=== PATIENT | female | born 1940 | race Caucasian/White ===

== ENCOUNTER 2017-12-06 23:47 | Emergency (ER) | payer OTHER ==
[2017-12-07 00:51] LABS: Absolute Lymphocytes (CBC) 2.4 K/uL (0.7-4.9); Absolute Monocytes 0.7 K/uL (0.1-1.3); Absolute Neutrophil 5.4 K/uL (1.8-8.0); Basophils % 0.5 % (0-1.3); Eosinophils % 3.9 % (0-4.4); Hematocrit 39.7 % (36.0-45.0); Lymphocytes % 27.1 % (15.3-44.8); MCH 30.9 pg (27.0-35.0); MCV 89.2 fL (80-100); MPV 8.2 fL (7.6-11.3); Monocytes % 7.8 % (3.3-12.3); RBC Red Blood Cell Count 4.45 M/uL (3.86-4.86)
[2017-12-07] MEDS ORDERED: MECLIZINE HCL 12.5 MG TAB ONE (00:58)
[2017-12-07 01:03] LABS: Protime INR 0.96
[2017-12-07 01:15] LABS: ALT/SGPT 34 U/L (12-78); AST/SGOT 23 U/L (15-37); Albumin 3.8 g/dL (3.4-5.0); Alkaline Phosphatase 71 U/L (45-117); BUN Blood Urea Nitrogen 21 mg/dL (7-18); Bicarbonate 27 mmol/L (21-32); Bilirubin Direct 0.1 mg/dL (0-0.2); Bilirubin Total 0.3 mg/dL (0.2-1.0); CKMB Creatine Kinase MB < 1.0 ng/mL (0.3-3.6); Creatine Phosphokinase 42 U/L (26-192); Glucose Level 114 mg/dL (74-106); NT PRO-BNP 141 pg/mL (<450); Potassium 3.8 mmol/L (3.5-5.1); Protein, Total 7.1 g/dL (6.4-8.2); Sodium Level 140 mmol/L (136-145); Troponin (Emerg Dept Use Only) < 0.02 ng/mL (0.0-0.045)
--- NOTE | 2017-12-07 02:07 | EDPHYS ---
Physician Documentation [facility] Name: Maria Del Carmen Mckeon Age: 77 yrs Sex: Female : 1940 Arrival Date: 12/06/2017 Time: 23:49 Bed 17 Private MD: Troy Santos F ED Physician Segundo Cole HPI: 12/07 01:00 This 77 yrs old Female presents to ER via EMS with complaints of Dizziness. pm1 01:00 The patient presents with sense of spinning, vertigo. Onset: The symptoms/episode pm1 began/occurred 2 day(s) ago. Context: occurred at home, occurred while the patient was changing position. just prior to the episode the patient experienced no apparent symptoms. Modifying factors: The symptoms are alleviated by holding head still, the symptoms are aggravated by movement of head, changing position. Associated signs and symptoms: Pertinent positives: nausea, Pertinent negatives: abdominal pain, chest pain, confusion, headache, numbness, shortness of breath, vomiting. Severity of symptoms: in the emergency department the symptoms have improved. Patient's baseline: Neuro: alert and fully oriented, Motor: no deficits, Ambulation: walks without assistance, Speech: normal. The patient has not experienced similar symptoms in the past, but family has similar symptoms, spouse. The patient has not recently seen a physician. Historical: - Allergies: 12/06 23:55 No Known Allergies; tl2 - Home Meds: 23:55 losartan-hydrochlorothiazide 50-12.5 mg oral tab 1 tab once daily [Active]; tl2 atorvastatin oral oral [Active]; - PMHx: 23:55 Hypertension; Hyperlipidemia; Glaucoma; tl2 - Immunization history:: Adult Immunizations up to date. - Social history:: Smoking status: Patient/guardian denies using tobacco. - Ebola Screening: : No symptoms or risks identified at this time. ROS: 12/07 01:00 Constitutional: Negative for fever, chills, and weight loss, Eyes: Negative for injury, pm1 pain, redness, and discharge, ENT: Negative for injury, pain, and discharge, Neck: Negative for injury, pain, and swelling, Cardiovascular: Negative for chest pain, palpitations, and edema, Respiratory: Negative for shortness of breath, cough, wheezing, and pleuritic chest pain, Abdomen/GI: Negative for abdominal pain, nausea, vomiting, diarrhea, and constipation, Back: Negative for injury and pain, : Negative for injury, bleeding, discharge, and swelling, MS/Extremity: Negative for injury and deformity, Skin: Negative for injury, rash, and discoloration. Neuro: Positive for dizziness, Negative for numbness, tingling, weakness. Exam: 01:00 Constitutional: This is a well developed, well nourished patient who is awake, alert, pm1 and in no acute distress. Head/Face: Normocephalic, atraumatic. Eyes: Pupils equal round and reactive to light, extra-ocular motions intact. Lids and lashes normal. Conjunctiva and sclera are non-icteric and not injected. Cornea within normal limits. Periorbital areas with no swelling, redness, or edema. ENT: Nares patent. No nasal discharge, no septal abnormalities noted. Tympanic membranes are normal and external auditory canals are clear. Oropharynx with no redness, swelling, or masses, exudates, or evidence of obstruction, uvula midline. Mucous membranes moist. Neck: Trachea midline, no thyromegaly or masses palpated, and no cervical lymphadenopathy. Supple, full range of motion without nuchal rigidity, or vertebral point tenderness. No Meningismus. Chest/axilla: Normal chest wall appearance and motion. Nontender with no deformity. No lesions are appreciated. Cardiovascular: Regular rate and rhythm with a normal S1 and S2. No gallops, murmurs, or rubs. Normal PMI, no JVD. No pulse deficits. Respiratory: Lungs have equal breath sounds bilaterally, clear to auscultation and percussion. No rales, rhonchi or wheezes noted. No increased work of breathing, no retractions or nasal flaring. Abdomen/GI: Soft, non-tender, with normal bowel sounds. No distension or tympany. No guarding or rebound. No evidence of tenderness throughout. Back: No spinal tenderness. No costovertebral tenderness. Full range of motion. Skin: Warm, dry with normal turgor. Normal color with no rashes, no lesions, and no evidence of cellulitis. MS/ Extremity: Pulses equal, no cyanosis. Neurovascular intact. Full, normal range of motion. 01:00 Neuro: Orientation: is normal, Mentation: is normal, Cranial nerves: CN II- XII are normal as tested, Cerebellar function: normal finger to nose testing, Motor: is normal, moves all fours, Sensation: is normal, no obvious gross deficits. Vital Signs: 12/06 23:55 BP 162 / 91; Pulse 77; Resp 18; Temp 98.6(O); Pulse Ox 99% on R/A; Weight 79.38 kg; tl2 Height 5 ft. 4 in. (162.56 cm); Pain 0/10; 12/07 01:21 BP 151 / 83; Pulse 72; Resp 19; Pulse Ox 96% on R/A; tl2 02:27 BP 135 / 70; Pulse 69; Resp 16; Temp 98.7; Pulse Ox 98% on R/A; Pain 0/10; tl1 12/06 23:55 Body Mass Index 30.04 (79.38 kg, 162.56 cm) tl2 MDM: 00:22 Patient medically screened. pm1 02:00 ED course: improvement in symptoms with Antivert. Patient feels better and ready to go pm1 home.. 02:04 Data reviewed: vital signs. Data interpreted: Pulse oximetry: on room air is 96 %. pm1 Interpretation: normal. Counseling: I had a detailed discussion with the patient and/or guardian regarding: the historical points, exam findings, and any diagnostic results supporting the discharge/admit diagnosis, lab results, radiology results, the need for outpatient follow up, to return to the emergency department if symptoms worsen or persist or if there are any questions or concerns that arise at home. 12/07 00:33 Order name: Basic Metabolic Panel pm1 12/07 00:33 Order name: CBC with Diff; Complete Time: 01:36 pm12/07 00:33 Order name: Ckmb; Complete Time: :36 pm12/07 00:33 Order name: CPK; Complete Time: :36 pm12/07 00:33 Order name: LFT's; Complete Time: :36 pm12/07 00:33 Order name: Magnesium; Complete Time: :36 pm12/07 00:33 Order name: CT Head Brain wo Cont pm1 12/07 00:33 Order name: NT PRO-BNP; Complete Time: 01:36 pm12/07 00:33 Order name: PT-INR; Complete Time: :36 pm1 12/07 00:33 Order name: Ptt, Activated; Complete Time: 01:36 pm1 12/07 00:33 Order name: Troponin (emerg Dept Use Only); Complete Time: 01:36 pm1 12/07 00:33 Order name: XRAY Chest (1 view) pm1 12/07 00:34 Order name: Basic Metabolic Panel; Complete Time: 01:36 EDMS 12/07 00:33 Order name: EKG; Complete Time: 00:34 pm1 12/07 00:33 Order name: Cardiac monitoring; Complete Time: 00:43 pm1 12/07 00:33 Order name: EKG - Nurse/Tech; Complete Time: 00:43 pm1 12/07 00:33 Order name: IV Saline Lock; Complete Time: 00:43 pm1 12/07 00:33 Order name: Labs collected and sent; Complete Time: 00:43 pm1 12/07 00:33 Order name: O2 Per Protocol; Complete Time: 00:43 pm1 12/07 00:33 Order name: O2 Sat Monitoring; Complete Time: 00:43 pm1 Administered Medications: 01:24 Drug: Meclizine 25 mg Route: PO; tl2 02:28 Follow up: Response: No adverse reaction; Marked relief of symptoms tl1 Disposition: 12/07/17 02:06 Discharged to Home. Impression: Benign paroxysmal vertigo. - Condition is Stable. - Discharge Instructions: Benign Positional Vertigo. - Prescriptions for Meclizine 25 mg Oral Tablet - take 1 tablet by ORAL route every 8 hours As needed; 30 tablet. - Medication Reconciliation Form, Thank You Letter form. - Follow up: Emergency Department; When: As needed; Reason: Worsening of condition. Follow up: Troy Santos MD; When: 2 - 3 days; Reason: Recheck today's complaints, Continuance of care, Re-evaluation by your physician. - Problem is new. - Symptoms have improved. Addendum: 12/08/2017 03:05 Co-signature as Attending Physician, Segundo Cole MD. g s Signatures: Dispatcher [employer] EDMS Huma Rodriguez RN RN tl1 Wilfredo Ram, WIRE STRAIGHTENER WIRE STRAIGHTENER pm1 Mariama Patten RN RN tl2 Segundo Cole MD MD Corrections: (The following items were deleted from the chart) 12/07 02:36 02:06 12/07/2017 02:06 Discharged to Home. Impression: Benign paroxysmal vertigo. tl1 Condition is Stable. Forms are Medication Reconciliation Form, Thank You Letter, Antibiotic Education, Prescription Opioid Use. Follow up: Emergency Department; When: As needed; Reason: Worsening of condition. Follow up: Troy Santos; When: 2 - 3 days; Reason: Recheck today's complaints, Continuance of care, Re-evaluation by your physician. Problem is new. Symptoms have improved. pm1
--- NOTE | 2017-12-07 02:07 | ER ---
Nurse's Notes [facility] Name: Maria Del Carmen Mckeon Age: 77 yrs Sex: Female : 1940 Arrival Date: 12/06/2017 Time: 23:49 Bed 17 Private MD: Troy Santos F Diagnosis: Benign paroxysmal vertigo Presentation: 12/06 23:53 Presenting complaint: Patient states: Pt reports dizziness when laying down for the tl2 past two night. Reports slight nausea. Dizziness improves when sitting up. Transition of care: patient was not received from another setting of care. Onset of symptoms was December 05, 2017. Risk Assessment: Do you want to hurt yourself or someone else? Patient reports no desire to harm self or others. Initial Sepsis Screen: Does the patient meet any 2 criteria? Yes Does the patient have a suspected source of infection? No. Patient's initial sepsis screen is negative. Care prior to arrival: IV initiated. 20 GA, in the right antecubital area, Glucose check: 113. 23:53 Method Of Arrival: EMS: [facility] tl2 23:53 Acuity: MATY 3 tl2 Triage Assessment: 12/07 00:03 General: Appears in no apparent distress. uncomfortable, Behavior is calm, cooperative, tl2 appropriate for age. Pain: Denies pain. Neuro: Level of Consciousness is awake, alert, obeys commands, Oriented to person, place, time, situation, Speech is normal, Reports dizziness, when laying flat Denies numbness headache. Cardiovascular: Denies chest pain. Respiratory: Airway is patent Respiratory effort is even, unlabored, Respiratory pattern is regular, symmetrical. GI: No signs and/or symptoms were reported involving the gastrointestinal system. : No signs and/or symptoms were reported regarding the genitourinary system. Derm: Skin is pink, warm \T\ dry. Historical: - Allergies: 12/06 23:55 No Known Allergies; tl2 - Home Meds: 23:55 losartan-hydrochlorothiazide 50-12.5 mg oral tab 1 tab once daily [Active]; tl2 atorvastatin oral oral [Active]; - PMHx: 23:55 Hypertension; Hyperlipidemia; Glaucoma; tl2 - Immunization history:: Adult Immunizations up to date. - Social history:: Smoking status: Patient/guardian denies using tobacco. - Ebola Screening: : No symptoms or risks identified at this time. Screenin/16 00:02 Abuse screen: Denies threats or abuse. Nutritional screening: No deficits noted. tl2 Tuberculosis screening: No symptoms or risk factors identified. Fall Risk Gait- Impaired (20 pts.). Assessment: 00:03 General: see triage assessment. tl2 02:26 Reassessment: Patient and/or family updated on plan of care and expected duration. Pain tl1 level reassessed. Patient is alert, oriented x 3, equal unlabored respirations, skin warm/dry/pink. Patient denies pain at this time. Patient states feeling better. Patient states symptoms have improved. Vital Signs: 12/06 23:55 BP 162 / 91; Pulse 77; Resp 18; Temp 98.6(O); Pulse Ox 99% on R/A; Weight 79.38 kg; tl2 Height 5 ft. 4 in. (162.56 cm); Pain 0/10; 12/07 01:21 BP 151 / 83; Pulse 72; Resp 19; Pulse Ox 96% on R/A; tl2 02:27 BP 135 / 70; Pulse 69; Resp 16; Temp 98.7; Pulse Ox 98% on R/A; Pain 0/10; tl1 12/06 23:55 Body Mass Index 30.04 (79.38 kg, 162.56 cm) tl2 ED Course: 12/06 23:49 Patient arrived in ED. ds1 23:53 Troy Santos MD is Private Physician. ds1 23:54 Triage completed. tl2 23:55 Arm band placed on right wrist. tl2 12/07 00:02 Patient has correct armband on for positive identification. Bed in low position. Call tl2 light in reach. Side rails up X2. Adult w/ patient. 00:02 No provider procedures requiring assistance completed. Maintain EMS IV. Dressing tl2 intact. Good blood return noted. Site clean \T\ dry. Gauge \T\ site: 20 g R AC. 00:18 Wilfredo Rma NP is PHCP. pm1 00:18 Segundo Cole MD is Attending Physician. pm1 00:[address] via stretcher. kw1 01:04 CT Head Brain wo Cont In Process Unspecified. EDMS 01:05 CT completed. Patient tolerated procedure well. Patient moved back from CT. kw1 01:18 X-ray completed. Patient tolerated procedure well. 1 01:18 XRAY Chest (1 view) In Process Unspecified. EDMS 02:05 Troy Santos MD is Referral Physician. pm1 02:26 Huma Rodriguez, BRADEN is Primary Nurse. tl1 02:27 IV discontinued, intact, bleeding controlled, No redness/swelling at site. Pressure tl1 dressing applied. Administered Medications: 01:24 Drug: Meclizine 25 mg Route: PO; tl2 02:28 Follow up: Response: No adverse reaction; Marked relief of symptoms tl1 Outcome: 02:06 Discharge ordered by MD. pm1 02:36 Patient left the ED. tl1 Signatures: Dispatcher [employer] EDND Maryana Quiroz 1 Kim Joy 1 Huma Rodriguez, RN RN tl1 Wilfredo Ram, DYLLAN SUPERVISOR SPEECH pm1 Mariama Patten RN RN tl2 Carlota Paez kw1 Corrections: (The following items were deleted from the chart) 01:24 00:03 Pain: Denies pain. tl2 tl2
--- NOTE | 2017-12-07 08:28 | RAD REPORT ---
EXAM DESCRIPTION: RAD - Chest Single View - 12/07/2017 1:18 am CLINICAL HISTORY: Shortness of breath COMPARISON: February 2015 TECHNIQUE: AP portable chest image was obtained 0101 hours . FINDINGS: No mass, consolidation or failure finding. Minimally prominent lung markings are stable. T rachea is midline. Heart and vasculature are normal. No measurable pleural effusion and no pneumothor ax. Bony degenerative changes are present. Prominent calcifications in the left acromial humeral join t space. No acute aortic findings suspected. IMPRESSION: No acute cardiopulmonary process. Above detailed chest findings are not significantly different from February 2015.
--- NOTE | 2017-12-07 09:04 | RAD REPORT ---
EXAM DESCRIPTION: CT - Head Brain Wo Cont - 12/07/2017 4:35 am CLINICAL HISTORY: Weakness, dizziness, syncope A preliminary report was provided at the time of the study and reviewed prior to final report. COMPARISON: None. TECHNIQUE: Axial 5 mm thick images of the head were obtained without IV contrast. All CT scans are performed using dose optimization technique as appropriate and may include automated exposure control or mA/KV adjustment according to patient size. FINDINGS: No intracranial hemorrhage, mass, edema or shift of mid-line structures. No acute infarcti on changes seen. No cortical edema or sulcal effacement. No significant atrophy changes. Ventricles a re normal. There is some patchy white matter attenuation abnormalities consistent with a minimal or m ild chronic ischemic change. Arterial tree calcifications are present. Mastoid air cells and visualized portions of the paranasal sinuses are clear. No acute bony findings. Patient has normal variant hyperostosis along the inner table frontal bone. IMPRESSION: No acute intracranial finding. Patchy mild chronic ischemic change.
--- NOTE | 2017-12-08 06:54 | EKG ---
Test Date: 2017-12-07 Test Time: 00:43:13 [employer] Principal: CLOVIS MEASUREMENT RESULTS: Intervals: Rate: 75 VA: 158 QRSD: 60 QT: 396 QTc: 442 Beulah: P: 45 VA: 158 QRS: 4 T: 12 INTERPRETIVE STATEMENTS: Sinus rhythm with premature atrial complexes with aberrant conduction Otherwise normal ECG No previous ECG available for comparison Electronically Signed On 12-08-17 06:51:23 CDT by Zelalem Rebolledo
== END 2017-12-07 02:36 | disposition home or self-care (01) ==
LOC: ER 23:47
DX: H81.10 Benign paroxysmal vertigo, unspecified ear (principal); I10 Essential (primary) hypertension; E78.5 Hyperlipidemia, unspecified
CPT/HCPCS: 36415; 70450; 71045; 80048; 80076; 82550; 82553; 83735; 83880; 84484; 85025; 85610; 85730; 93005; 99284